=== PATIENT | female | born 1990 | race Caucasian/White ===

== ENCOUNTER 2019-03-30 19:49 | Emergency (ER) | payer OTHER ==
--- NOTE | 2019-03-30 20:04 | EDPHY ---
General Time Seen by Provider: 03/30/19 20:04 Narrative: CLINICAL IMPRESSION: Right lateral ankle sprain, right medial malleolar fracture, right posterior thoracic pain ASSESSMENT/PLAN: Patient is a 29-year-old female with no significant medical history who presents to the emergency department with right ankle pain and posterior thoracic rib pain after an injury sustained while rock climbing. Patient is mildly uncomfortable appearing however not toxic-appearing. Her lungs were clear to auscultation bilaterally, her oxygen saturation was 96% on room air. Her neurological exam was grossly normal with no focal deficit. She had no midline spinal tenderness to palpation. There were no findings to suggest traumatic spinal injury, cauda equina, epidural compression syndrome or epidural hematoma. Physical examination reveals generalized edema overlying the right medial and lateral malleoli with associated tenderness to palpation. Chest x-ray revealed no acute cardiopulmonary abnormality. There was no evidence of obvious rib fracture, hemothorax or pneumothorax. Ankle X-ray revealed a nondisplaced medial malleolar fracture. No evidence of open fracture , dislocation, compartment syndrome or neurovascular compromise. History and physical examination is consistent with a right lateral ankle sprain , right medial malleolar nondisplaced fracture and right posterior rib contusion. The patient was given ibuprofen and lidocaine patch was placed, she declined any narcotics in the emergency department, she was placed in a Krishnamurthy boot and given crutches for nonweightbearing status until follow-up with Ortho. Ortho referral provided, return precautions discussed. DIFFERENTIAL DX: Differential diagnosis includes but not limited to head injury, rib fracture, pneumothorax, hemothorax, contusion. Ankle differential includes but not limited to sprain, contusion, fracture, dislocation. ED PROCEDURES: Procedure: Splint placement. A Krishnamurthy boot splint was applied. After application of the splint I returned and re-examined the patient. The splint was adequately immobilizing the joint and distal to the splint the patient's circulation and sensation was intact. ED COURSE: 2014: Case discussed with Dr. Dillon 2043: X-rays reviewed with Dr. Dillon. Chest x-ray revealed no evidence of obvious rib fracture, pneumothorax or hemothorax. Right ankle x-ray revealed a nondisplaced medial malleolar fracture. 2055: On repeat examination the patient is in her boot, she is able to ambulate with crutches without difficulty. A secondary assessment was performed , no additional injuries were identified. The patient reports improved pain both on her posterior rib and ankle after ibuprofen and lidocaine patch replaced. Patient understands importance of nonweightbearing status and follow up with Orthopedic surgery, she will call tomorrow to schedule appointment. CHIEF COMPLAINT: Right ankle pain, right back pain HPI: Patient is a 29-year-old female with no significant medical history who presents to the emergency department complaining of right ankle pain and right- sided posterior rib pain after sustaining an injury while climbing. Patient reports she was lead climbing outdoors, she lost her hold causing her to free fall. During this free fall she caught her ankle on the ledge causing an eversion injury, she also hit her right upper back as she is swung into the rocks. She caught herself prior to hitting the ground, she never hit the ground. Patient immediately experienced right-sided upper rib and back pain resultant of hitting the rock, she was experiencing some increased pain with inspiration and feeling like it took her breath away. She denies any shortness of breath or chest pain. She complains of right ankle pain and swelling, denies any foot pain. She has no previous injury to this ankle or foot. She denies any midline neck or back pain. She did not hit her head, there was no loss of consciousness. Patient denies saddle paresthesias, lower extremity numbness, tingling, major motor weakness, urinary retention or bowel/bladder incontinence. She has not taken anything for pain. PMH: Denies Family History: Not contributory Social History: Denies cigarette smoking REVIEW OF SYSTEMS: All other systems negative Constitutional: No fever, no chills, appetite change. Eyes: No discharge, vision change ENT: No sore throat, congestion, ear pain. Cardiovascular: No chest pain, no palpitations. Respiratory: No cough. Gastrointestinal: No abdominal pain, no vomiting, diarrhea. Genitourinary: No hematuria, dysuria, flank pain. Musculoskeletal: Right-sided upper back and rib pain, right ankle pain. Skin: No rashes, color change. Neurological: No headache, dizziness, weakness. PHYSICAL EXAM: General Appearance: Well-appearing, no acute distress and not toxic-appearing. HENT: Normocephalic, atraumatic. Bilateral external ears are normal. Bilateral tympanic membranes are normal with pearly shah reflex. Nares are clear, mucosa is pink. Oropharynx is clear, uvula is midline. There is no tonsillar enlargement or exudate. The dentition is normal. Eyes: PERRLA, EOMI. Conjunctiva pink, no pallor or injection Neck: Supple, nontender, no lymphadenopathy, no midline pain, FROM. Back: No step-off, palpable bony abnormality, edema, erythema or ecchymosis of the thoracic or lumbar spines. Patient has no midline thoracic or lumbar spinal tenderness to palpation, no step-off or deformity. Patient is tender lateral to her thoracic spine in between her spine and shoulder blade. There is no obvious trauma, ecchymosis or edema. There is no palpable bony deformity. Normal range of motion of all spines. 5/5 and equal strength of the UEs and LEs bilaterally including shoulder shrug. Pulses: 2+ and equal radial, DP and PT pulses bilaterally. Sensation intact and symmetric to light touch from face, UEs and LEs bilaterally. Respiratory: There are no retractions, lungs are clear to auscultation. Cardiac: Regular rate and rhythm, no murmurs or gallops. Gastrointestinal: Abdomen is soft, nontender, bowel sounds normal, no masses/ hernia, no rigidity, guarding or focal peritoneal findings. Neurological: Alert and oriented x 3, CN 2-12 grossly intact, normal sensation and strength Skin: Warm, dry, no rashes, no nodules on palpation. Upper Extremities: Bilateral upper extremities unremarkable-Intact distal pulses, Full range of motion intact, no tenderness, no ecchymosis or edema. Lower Extremities: Left lower extremity with healing areas of ecchymosis anterior berg consistent with previous injury. Nontender. Full range of motion of the 6 drum any, all compartments are soft. Intact distal pulses. Right ankle with generalized swelling overlying the lateral malleolus and inferior to the lateral malleolus. Patient has point tenderness on the lateral malleolus and inferiorly. She has mild notable edema overlying the medial malleolus, she is also tender at the medial malleolus. She has no tenderness at the navicular bone or base of the 5th metatarsal. Sensation is intact in the 1st webspace. Calf is nontender, she has some areas of ecchymosis along the anterior berg from a previous injury. Berg is nontender. She has no proximal fibular head tenderness. All compartments are soft, right lower extremities otherwise unremarkable. 2+ dorsalis pedis. Psychiatric: Mood and affect are normal, there is no agitation. MEDICAL DECISION MAKING: Patient was seen independently. Secondary supervising physician at time of evaluation was Dr. Dillon, he did not evaluate this patient. Diagnosis: Right lateral ankle sprain, right medial malleolar fracture, right posterior thoracic pain. Summary: See Assessment and Plan for summary of ED visit Independent visualization of images, tracing, or specimens: Yes. Decision to obtain medical records or history from someone other than the patient: Yes, partner who witnessed the incident Review / Summarize previous medical records: Yes Discussed patient with another provider: Yes, Dr. Dillon Patient Progress: Stable, discharge. - Diagnostics Imaging Results: Imaging Impressions Ribs w/Chest X-Ray 03/30/19 20:13 Impression: No evidence for acute cardiopulmonary abnormality. No evidence for right rib fracture. - History Smoking Status: Never smoked - Objective Vital Signs: Initial Vital Signs Temperature (C) 36.7 C 03/30/19 19:50 Heart Rate 79 03/30/19 19:50 Respiratory Rate 17 03/30/19 19:50 Blood Pressure 117/83 H 03/30/19 19:50 O2 Sat (%) 96 03/30/19 19:50 O2 Delivery Mode Room Air Allergies/Adverse Reactions: No Known Allergies Allergy (Unverified 03/30/19 19:54) Home Medications: Medication Instructions Recorded NK [No Known Home Meds] 03/30/19 Medications Given: Discontinued Medications Hydrocodone Bitart/Acetaminophen (Napa 5/325mg Prepack#6) 1 btl TAKEHOME EDNOW ONE Stop: 03/30/19 20:51 Last Admin: 03/30/19 20:59 Dose: 1 btl Ibuprofen (Motrin) 600 mg PO EDNOW ONE Stop: 03/30/19 20:15 Last Admin: 03/30/19 20:28 Dose: 600 mg Miscellaneous Medication (Icy Hot Lidocaine/Menthol 4%/1% Patch) 1 patch TD EDNOW ONE Stop: 03/30/19 20:33 Last Admin: 03/30/19 20:41 Dose: 1 patch Ondansetron HCl (Zofran Odt 4 Mg Prepack#2) 1 btl TAKEHOME EDNOW ONE Stop: 03/30/19 20:51 Last Admin: 03/30/19 20:58 Dose: 1 btl Departure - Departure Disposition: Home, Routine, Self-Care Clinical Impression: Rib contusion Qualifiers: Encounter type: initial encounter Laterality: right Qualified Code(s): S20.211A - Contusion of right front wall of thorax, initial encounter Ankle sprain Qualifiers: Encounter type: initial encounter Involved ligament of ankle: other ligament Laterality: right Qualified Code(s): S93.491A - Sprain of other ligament of right ankle, initial encounter Ankle fracture, right Qualifiers: Encounter type: initial encounter Fracture type: closed Qualified Code(s): S82.891A - Other fracture of right lower leg, initial encounter for closed fracture Condition: Good Instructions: Hydrocodone/Acetaminophen (By mouth), Ondansetron (By mouth), Ankle Sprain (ED), Rib Contusion (ED), Ankle Fracture (ED) Additional Instructions: DISCHARGE INSTRUCTIONS FROM YOUR PROVIDER Thank you for visiting our emergency department today. Please keep in mind that discharge from the emergency department does not mean that there is nothing wrong - it simply means that we have not identified an emergency condition that requires further evaluation or treatment in the hospital. You should always plan to follow up with primary care for re-evaluation of your condition in the next 2-3 days. Please call Orthopedic surgery tomorrow to schedule an appointment for follow- up next week. Avoid heavy lifting, pushing, pulling, carrying. Take deep breaths intentionally, several times per hour. As we discussed, guarding from the pain associated with a rib fracture or bruise, increases your risk for pneumonia or lung collapse. Apply ice on and off to decrease pain and swelling for the first 24-48 hours. Then apply ice or moist heat, whichever feels better. Salonpas pain patch as needed if this helps you. Apply as directed, you may purchase this [id number] at a grocery store or pharmacy. As discussed, even though the chest xray did not show rib fractures, they could be present. Given the xray did not show lung collapse, blood or fluid in the lung, or significant displaced fractures, the treatment remains the same. In regards to her ankle: Rest, ice (on and off), elevate the foot and ankle as much possible above the level of the heart to decrease pain and swelling. Continue wearing your Krishnamurthy boot until follow-up with Orthopedics, please do not bear weight, using her crutches. For pain control: You may take Tylenol, I recommend 500-1000 mg every 6-8 hours as needed. Take with food and a full glass of water. Stop taking if this is upsetting you stomach. Do not exceed 4000 mg in a 24 hr period. You may also take ibuprofen, recommend 400 mg every 6 hr. Take with food and a full glass of water. Stop taking if this upsets your stomach. Do not exceed 2400 mg in a 24 hr period. You have been prescribed Napa which is a narcotic. Please do not drive or operate machinery while taking this medication as it may make you drowsy. It may also be habit forming. This medication can also cause constipation, recommend taking 100 mg of Colace twice daily while taking this medication. This medication also contains Tylenol, please do not take other Tylenol containing products with this medication. Schedule a follow-up visit with a primary care physician in the next 2-3 days for re-evaluation. Bring a copy of your test results with you to that appointment. (See our list if you don't have one). Return for increased or unmanageable pain, coughing up blood or discolored sputum, shortness of breath, pain in the center of your chest, rapid or irregular heart beat, unusual sweating, wheezing, chest pain, bloody urine, abdominal pain, vomiting, development of fever, chills, neck pain, neck stiffness, back pain, numbness, tingling, weakness of your arms or legs, change in or loss of bowel or bladder control, or for any other new, worsening or worrisome symptoms. People present with illnesses and injuries in different ways, and it is always possible that we have missed something. Again, thank you for choosing our emergency department. We hope that you feel better. Referrals: Rolando Theodore MD [Medical Doctor] - As per Instructions (Please establish care with a primary care provider if you do not already have 1. ) Kimo Morris MD [Medical Doctor] - 2-3 days, call for appt. (Follow-up as needed if you have persistent ankle pain)
[2019-03-30] MEDS ORDERED: IBUPROFEN 600 MG TAB PO ONE (20:14)
[2019-03-30] MEDS ORDERED: LIDOCAINE 4%/MENTHOL 1% PATCH TD ONE (20:32)
[2019-03-30] MEDS ORDERED: ONDANSETRON 4MG PREPACK#2 BTL TAKEHOME ONE (20:50)
[2019-03-30] MEDS ORDERED: HYDROCOD/APAP 5/325 PREPACK#6 BTL TAKEHOME ONE (20:50)
[2019-03-30] MEDS ORDERED: PATCH REMOVAL 1 EA PATCH TD SCH (21:00)
[2019-03-30 21:08] VITALS: BP 118/92
== END 2019-03-30 21:08 | disposition home or self-care (01) ==
DX: S82.891A Other fracture of right lower leg, initial encounter for closed fracture (principal); S93.491A Sprain of other ligament of right ankle, initial encounter; S20.211A Contusion of right front wall of thorax, initial encounter; W17.89XA Other fall from one level to another, initial encounter; Y93.31 Activity, mountain climbing, rock climbing and wall climbing
CPT/HCPCS: L4386